=== PATIENT | male | born 1995 | race Caucasian/White ===

== ENCOUNTER 2018-05-21 02:57 | Emergency (ER) | payer BC ==
[2018-05-21] MEDS ORDERED: DIPH/PERTUSS(ACELL)/TETANUS VAC/PF 0.5 ML SYR (>=10YO) IM ONE (04:26)
[2018-05-21] MEDS ORDERED: LIDOCAINE 1% INJ-PF (10 MG/ML) 30 ML SDV INJ ONE (04:29)
--- NOTE | 2018-05-21 05:36 | ER Document Report ---
HPI - HPI Patient complains to provider of: finger laceration Time Seen by Provider: 05/21/18 04:01 Pain Level: 1 Context: Patient is a 22-year-old male presenting to the emergency department complaining of a laceration to the left pinky. Patient states he was cutting a venison meat when his hand accidentally slipped and he caught his left pinky. Patient is unsure of his last tetanus vaccine. denies any other injuries at this time. Past medical history: None Medications: None Allergies: None - MUSCULOSKELETAL Musculoskeletal: REPORTS: Extremity pain - L 5th finger Past Medical History - General Information source: Patient - Social History Smoking Status: Current Every Day Smoker Frequency of alcohol use: Social Drug Abuse: None Lives with: Family Family History: Reviewed & Not Pertinent Patient has suicidal ideation: No Patient has homicidal ideation: No Renal/ Medical History: Denies: Hx Peritoneal Dialysis Vertical Provider Document - CONSTITUTIONAL Agree With Documented VS: Yes Notes: GENERAL: Alert, interacts well. No acute distress. HEAD: Normocephalic, atraumatic. EYES: Pupils equal, round, and reactive to light. Extraocular movements intact. ENT: Oral mucosa moist, tongue midline. On start Moving NECK: Full range of motion. Supple. Trachea midline. LUNGS: Clear to auscultation bilaterally, no wheezes, rales, or rhonchi. No respiratory distress. HEART: Regular rate and rhythm. No murmur ABDOMEN: Soft, non-tender. Non-distended. Bowel sounds present in all 4 quadrants. EXTREMITIES: Moves all 4 extremities spontaneously. No edema, normal radial and dorsalis pedis pulses bilaterally. No cyanosis. BACK: no cervical, thoracic, lumbar midline tenderness. No saddle anesthesia, normal distal neurovascular exam. NEUROLOGICAL: Alert and oriented x3. Normal speech. cranial nerves II through XII grossly intact. PSYCH: Normal affect, normal mood. SKIN: Warm, dry, normal turgor. 2 cm laceration noted to the palmar aspect of the left fifth digit. Laceration is in between the PIP and DIP. Laceration is horizontal in nature. Patient can flex and extend all digits on left hand. - INFECTION CONTROL TRAVEL OUTSIDE OF THE [place] IN LAST 30 DAYS: No Course - Re-evaluation Re-evalutation: 05/21/18 05:35 Patient tolerated procedure well at this time. No complications. Discussed follow-up and suture removal with patient at bedside. - Vital Signs Vital signs: Temp Pulse Resp BP Pulse Ox 97.5 F 85 16 148/75 H 97 05/21/18 03:03 05/21/18 03:03 05/21/18 03:03 05/21/18 03:03 05/21/18 03:03 Procedures - Laceration/Wound Repair Finger Wound length (cm): 2 Wound's Depth, Shape: Superficial Laceration pre-procedure: Sterile PPE donned, Sterile drapes applied, Shur- Clens applied Anesthetic type: 1% Lidocaine Volume Anesthetic (mLs): 2 Wound explored: Clean Irrigated w/ Saline (mLs): 300 Wound Debrided: Minimal Wound Repaired With: Sutures Suture Size/Type: 4:0, Ethilon Number of Sutures: 3 Post-procedure wound care: Sterile dressing applied Post-procedure NV exam normal: Yes Complications: No Discharge - Discharge Clinical Impression: Finger laceration Qualifiers: Encounter type: initial encounter Finger: unspecified finger Damage to nail status: without damage Foreign body presence: without foreign body Laterality: left Qualified Code(s): S61.219A - Laceration without foreign body of unspecified finger without damage to nail, initial encounter Condition: Stable Disposition: HOME, SELF-CARE Instructions: Laceration Care ([facility]), Tetanus Immunization Given ([facility]), Antibiotic Ointment Protection ([facility]) Additional Instructions: As we discussed you have been seen and treated in the emergency department for a finger laceration. Your laceration was repaired with sutures. The sutures need to come out in the next 10-14 days. Please follow-up with your primary care provider or return to the emergency room for this procedure. Please watch the wound for signs of infection. Signs of infection would be redness or discharge from the wound site. Please return to the emergency room for any other concerning symptoms.
[2018-05-21 06:11] VITALS: BP 128/64
== END 2018-05-21 06:10 | disposition home or self-care (01) ==
LOC: EDBD 02:57 → ER 02:57
DX: S61.217A Laceration without foreign body of left little finger without damage to nail, initial encounter (principal); W26.0XXA Contact with knife, initial encounter; F17.200 Nicotine dependence, unspecified, uncomplicated; Z23 Encounter for immunization
CPT/HCPCS: 99282; 90715; 12001; J3490